=== PATIENT | male | born 1980 | race Caucasian/White ===

== ENCOUNTER 2016-09-12 10:13 | Emergency (ER) | payer BC ==
[~2016-09-12] VITALS: Ht 177.8 cm; Wt 81.2 kg
[2016-09-12 10:15] VITALS: TEMP 36.4; Ht 177.8 cm; Wt 81.2 kg
[2016-09-12] MEDS ORDERED: SODIUM CHLORIDE 0.9% 1000ML 1,000 ML IV STA (12:07)
[2016-09-12] MEDS ORDERED: SODIUM CHLORIDE 0.9% 500ML 500 ML IV STA (12:07)
[2016-09-12] MEDS ORDERED: METHYLPREDNISOLONE 125 MG VIAL IV STA (12:07)
[2016-09-12] MEDS ORDERED: PROCHLORPERAZINE 5 MG/ML 2 ML VIAL IV STA (12:07)
[2016-09-12] MEDS ORDERED: DiphenhydrAMINE HCL 50 MG/ML VIAL IV STA (12:07)
--- NOTE | 2016-09-12 12:12 | EMERGENCY ROOM VISIT NOTE ---
History Report prepared by Scribruth: Jacob Martinez Under the Supervision of: Dr. Maile Lewis M.D. First contact with patient: 12:03 Chief Complaint: EYE ASSESSMENT Stated Complaint: BLURRED VISION History of Present Illness The patient is a 36 year old male who presents to the Emergency Room with complaints of resolved blurry vision of his bilateral eyes. The patient started to experience blurry vision at approximately 0930 this morning, which lasted until approximately 1015. He has not had any blurry vision since. The patient has also had a headache this morning. The headache is in the right frontal area. The patient experiences headaches frequently, which vary in location. The patient notes that he had the headache when he woke up this morning, prior to the onset of blurry vision. He has never had a brain MRI. The patient works two jobs between [employer] and [employer]. He usually works 7 days a week and does not always get a full night of sleep. Source of History: patient Onset: 0930 Position: eye (bilateral) Quality: other (blurry vision) Timing: resolved Associated Symptoms: + headache Review of Systems See HPI for pertinent positives & negatives. A total of 10 systems reviewed and were otherwise negative. Past Medical & Surgical Medical Problems: (1) Frequent headaches (2) Rash and nonspecific skin eruption Family History No pertinent family history Social History Smoking Status: Former Smoker Marital Status: Housing Status: lives with family Occupation Status: employed Current/Historical Medications No Active Prescriptions or Reported Meds Allergies Coded Allergies: Penicillins (Verified Allergy, Intermediate, facial swelling, 09/12/16) Dust Mite Extract (Unverified Allergy, Mild, 09/12/16) Physical Exam Vital Signs Date Time Temp Pulse Resp B/P Pulse Ox O2 Delivery O2 Flow Rate FiO2 09/12/16 14:14 73 16 145/94 96 09/12/16 13:13 67 16 151/95 99 Room Air 09/12/16 10:15 36.4 85 16 145/92 95 Room Air Right Eye Acuity: 20/40 Left Eye Acuity: 20/40 Physical Exam Vital signs reviewed. General: Well-appearing 36 yo male, in no significant distress. HEENT: No scleral icterus, PERRLA, neck supple. Atraumatic. Cardiovascular: Regular rate and rhythm, no extra sounds. Pulmonary: Clear to auscultation bilaterally, normal work of breathing. Abdomen: Soft, nontender, nondistended, positive bowel sounds. Musculoskeletal: Atraumatic, no peripheral edema. Neurologic: Patient awake alert and oriented x 3, full strength in all 4 extremities. Cranial nerves 2 through 12 grossly intact. Visual gauthier intact. Cerebellar exam is intact. Skin: Warm, dry, no rash Medical Decision & Procedures Medications Administered Medications (Trade) Dose Ordered Sig/Rocío Route Start Time Stop Time Status Last Admin Dose Admin Acetaminophen (Tylenol Tab) 650 mg NOW STAT PO 09/12/16 12:29 09/12/16 12:33 DC 09/12/16 12:46 650 MG Sumatriptan Succinate (Imitrex Tab) 50 mg NOW STAT PO 09/12/16 12:36 09/12/16 12:37 DC 09/12/16 13:12 50 MG ED Course 1206: Past medical records reviewed. The patient was evaluated in room B12a. A complete history and physical examination was performed. 1229: Tylenol 650 mg PO. 1235: Imitrex 100 mg PO. 1400: Patient has opted to leave AMA. I discussed everything with him and urged him to stay. He verbalized understanding. Medical Decision DDx: Intracranial hemorrhage, intracranial mass, migraine headache, aura, vascular abnormality, tension headache, sinusitis, meningitis This pt was evaluated and appeared to be in no distress. Pt refused any diagnostic interventions. He declined MRI, CT and lab work. Pt was accepting of imitrex and tylenol po. Pt was d/c AMA and advised to f/u with PCP ANJALI. He will return to the ED for worsening of symptoms or any medical concerns. Impression Primary Impression: Visual field scotoma Additional Impression: Left against medical advice Scribe Attestation The scribe's documentation has been prepared under my direction and personally reviewed by me in its entirety. I confirm that the note above accurately reflects all work, treatment, procedures, and medical decision making performed by me. Departure Information Dispostion Against Medical Advice Prescriptions No Active Prescriptions or Reported Meds Referrals Lucita Rowe C.R.N.P. (PCP) Forms HOME CARE DOCUMENTATION FORM, IMPORTANT VISIT INFORMATION, WORK / SCHOOL INSTRUCTIONS Patient Instructions My [facility] Additional Instructions Diagnosis: Headache, visual scotoma You have refused imaging and laboratory work. If symptoms worsen or do not improve, return to the ER immediately for further evaluation. Follow-up with her primary care physician this week for reevaluation. Return to the ER for worsening of symptoms or any medical concerns. Problem Qualifiers Primary Impression: Visual field scotoma Laterality: bilateral Qualified Codes: H53.453 - Other localized visual field defect, bilateral
[2016-09-12] MEDS ORDERED: ACETAMINOPHEN 325 MG TAB PO STA (12:29)
[2016-09-12] MEDS ORDERED: SUMATRIPTAN SUCC TAB 100 MG TAB PO STA (12:35)
[2016-09-12] MEDS ORDERED: SUMATRIPTAN SUCCINATE 50 MG TAB PO STA (12:36)
[2016-09-12 14:14] VITALS: BP 145/94; PULSE 73; O2SAT 96
== END 2016-09-12 14:18 | disposition left against medical advice (07) ==
LOC: C.EDB 10:14
DX: H53.8 Other visual disturbances (principal); Z53.21 Procedure and treatment not carried out due to patient leaving prior to being seen by health care provider; Z87.891 Personal history of nicotine dependence